=== PATIENT | female | born 1985 | race Caucasian/White ===

== ENCOUNTER 2017-06-24 10:23 | Emergency (ER) | payer OTHER | END 2017-06-24 11:20 | disposition home or self-care (01) | LOC: D.ER 10:23 | DX: S62.637A Displaced fracture of distal phalanx of left little finger, initial encounter for closed fracture (principal); Y93.83 Activity, rough housing and horseplay; Y93.89 Activity, other specified; Y92.019 Unspecified place in single-family (private) house as the place of occurrence of the external cause ==

== ENCOUNTER 2017-06-26 15:11 | Emergency (ER) | payer OTHER | END 2017-06-26 18:57 | disposition home or self-care (01) | LOC: D.ER 15:11 | DX: S62.637A Displaced fracture of distal phalanx of left little finger, initial encounter for closed fracture (principal); X58.XXXA Exposure to other specified factors, initial encounter; Y93.89 Activity, other specified; Y92.019 Unspecified place in single-family (private) house as the place of occurrence of the external cause ==

== ENCOUNTER 2018-03-30 10:02 | Emergency (ER) | payer OTHER ==
[~2018-03-30] VITALS: Ht 160 cm; Wt 109.1 kg
[2018-03-30 10:06] VITALS: Ht 160 cm; Wt 109.1 kg
[2018-03-30] MEDS ORDERED: NEXIUM20 MG PO (10:07)
[2018-03-30] MEDS ORDERED: ZYRTEC10 MG PO (10:07)
[2018-03-30 10:34] LABS: APPEARANCE SL CLDY (CLEAR); COLOR YELLOW (YELLOW)
[2018-03-30 10:35] LABS: BACTERIA MANY /hpf (NONE SEEN); BILIRUBIN NEGATIVE (NEGATIVE); EPITHELIAL CELLS OCC /hpf (0-5); GLUCOSE NEGATIVE (NEGATIVE); KETONE NEGATIVE (NEGATIVE); NITRITE POSITIVE (NEGATIVE); PROTEIN 1+ mg/dL (NEGATIVE); UROBILINOGEN NORMAL (NORMAL); WHITE CELLS - URINE 25-50 /hpf (0-5)
[2018-03-30 10:36] LABS: MUCUS <1+ /lpf (NONE SEEN)
[2018-03-30] MEDS ORDERED: MACROBID100 MG PO (11:06)
[2018-03-30] MEDS ORDERED: PHENAZOPYRIDIN200 MG PO (11:06)
[2018-03-30 11:15] VITALS: BP 122/82
== END 2018-03-30 11:16 | disposition home or self-care (01) ==
LOC: D.ER 10:02
PROVIDERS: Emergency Medicine
DX: N39.0 Urinary tract infection, site not specified (principal); R30.0 Dysuria; M54.5 Low back pain; R10.30 Lower abdominal pain, unspecified; F17.200 Nicotine dependence, unspecified, uncomplicated

== ENCOUNTER 2018-10-13 21:25 | Emergency (ER) | payer OTHER ==
[~2018-10-13] VITALS: Ht 160 cm; Wt 104.5 kg
[~2018-10-13 21:25] MED LIST: MACROBID100 MG PO; NEXIUM20 MG PO; PHENAZOPYRIDIN200 MG PO; ZYRTEC10 MG PO
[2018-10-13 21:32] VITALS: Ht 160 cm; Wt 104.5 kg
[2018-10-13 22:23] LABS: BASOPHILS 0.2 % (0-2); EOSINOPHILS 6.3 % (0-7); HEMATOCRIT 40.4 % (36.0-48.0); IMMATURE GRANULOCYTES 0.2 % (0-5); LYMPHOCYTES 21.5 % (15-50); MCHC 34.7 g/dL (31.0-37.0); MCV 83.6 fL (80.0-100.0); MEAN PLATELET VOLUME 11.4 fL (7.4-10.4); MONOCYTES 7.2 % (2-11); NEUTROPHILS 64.6 % (40-80); PLATELET COUNT 295 10x3/uL (130-400); RBC 4.83 10x6/uL (4.00-5.40)
[2018-10-13 22:50] LABS: APPEARANCE CLEAR (CLEAR); COLOR YELLOW (YELLOW)
[2018-10-13 22:51] LABS: BILIRUBIN NEGATIVE (NEGATIVE); EPITHELIAL CELLS OCC /hpf (0-5); GLUCOSE NEGATIVE (NEGATIVE); KETONE NEGATIVE (NEGATIVE); NITRITE NEGATIVE (NEGATIVE); PROTEIN NEGATIVE (NEGATIVE); RED CELLS - URINE 0-5 /hpf (0-5); UROBILINOGEN NORMAL (NORMAL); WHITE CELLS - URINE OCC /hpf (0-5)
[2018-10-13 22:51] LABS: ALBUMIN 3.8 g/dL (3.4-5.0); ALKALINE PHOSPHATASE 129 U/L (46-116); ALT (SGPT) 49 U/L (10-68); BILIRUBIN - TOTAL 0.45 mg/dL (0.2-1.3); CALC OSMOLALITY 273 mosm/kg (275-300); CALCIUM 8.9 mg/dL (8.5-10.1); CARBON DIOXIDE 27.2 mmol/L (21.0-32.0); CHLORIDE - SERUM 102 mmol/L (98-107); CREATININE - SERUM 0.9 mg/dL (0.6-1.3); GLUCOSE 101 mg/dL (74-106); POTASSIUM - SERUM 3.6 mmol/L (3.5-5.1); PROTEIN - SERUM 7.8 g/dL (6.4-8.2); SODIUM 138 mmol/L (136-145); UREA NITROGEN 7 mg/dL (7-18); eGFR NON AFRICAN AMERICAN 75 mL/min (90-120)
[2018-10-13 22:52] LABS: BACTERIA FEW /hpf (NONE SEEN); HCG URINE NEGATIVE (NEGATIVE)
[2018-10-13 22:54] LABS: AMYLASE - SERUM 19 U/L (25-115); LIPASE 102 U/L (73-393)
[2018-10-13 22:55] LABS: TROPONIN-I < 0.017 ng/mL (0.000-0.060)
[2018-10-14] MEDS ORDERED: CYCLOBENZAPRINE10 MG PO (00:11)
[2018-10-14] MEDS ORDERED: ACETAMINOPHEN500 M1 PO (00:11)
[2018-10-14] MEDS ORDERED: IBUPROFEN800 MG PO (00:11)
[2018-10-14 00:31] VITALS: BP 147/94
== END 2018-10-14 00:31 | disposition home or self-care (01) ==
LOC: D.ER 21:25
PROVIDERS: Family Medicine
DX: N83.202 Unspecified ovarian cyst, left side (principal)

== ENCOUNTER 2019-07-14 12:24 | Emergency (ER) | payer OTHER ==
[~2019-07-14] VITALS: Ht 160 cm; Wt 102.3 kg
[~2019-07-14 12:24] MED LIST changes: +ACETAMINOPHEN500 M1 PO; +CYCLOBENZAPRINE10 MG PO; +IBUPROFEN800 MG PO
[2019-07-14 12:33] VITALS: BP 178/95; Ht 160 cm; Wt 102.3 kg
[2019-07-14] MEDS ORDERED: CLEOCIN HCL300 MG PO (12:54)
== END 2019-07-14 13:42 | disposition home or self-care (01) ==
LOC: D.ER 12:24
DX: K02.9 Dental caries, unspecified (principal); K08.89 Other specified disorders of teeth and supporting structures